=== PATIENT | male | born 1975 ===

== ENCOUNTER 2020-06-03 12:35 | Outpatient (CLI) | payer OTHER ==
--- NOTE | 2020-06-03 14:32 | MRI Report ---
PROCEDURE: Knee LT W/O INDICATIONS: SPRAIN IN LT KNEE TECHNIQUE: Noncontrast sagittal PD fast spin echo and T2 fast spin echo with fat saturation, sagittal 3-D gradie nt sequence with fat saturation; coronal T1 spin echo and PD fast spin echo with fat saturation, and axial PD fast spin echo with fat saturation through the knee. COMPARISON: None. FINDINGS: Image quality: Excellent. Menisci: There is peripheral displacement of medial meniscus bowing medial collateral ligament. Compl ex oblique tear involving posterior horn of medial meniscus is seen extending to both superior and in ferior articulating surfaces. Complex tear involving anterior horn, body and posterior horn of latera l meniscus is also seen extending to both superior and inferior articulating surfaces. Peripheral dis placement of lateral meniscus is also seen bowing lateral collateral ligament. The meniscal root liga ments appear intact. Cruciate ligaments: Patient is status post anterior cruciate ligament repair with postsurgical change s. ACL graft is grossly intact. Posterior cruciate ligament is intact. Medial structures: The medial collateral ligament appears intact. The posterior oblique ligament, s emimembranosus tendon insertions, and oblique popliteal ligament, and meniscocapsular junction appear intact. Visualized portions of the pes anserinus tendons appear normal. No abnormal bursal fluid. Lateral structures: Low-grade LCL sprain is seen. The popliteus tendon appears normal; the popliteofi bular ligament appears intact. The posterosuperior and anteroinferior popliteomeniscal fascicles cici ear intact. The arcuate and fabellofibular ligaments appear intact, around the lateral inferior roseline culate artery. Iliotibial band appears normal. Anterior structures: The quadriceps and patellar tendons appear intact. Patellar alignment is kacey l. No femoral trochlear dysplasia or ventral trochlear prominence. No edema in the infrapatellar fa t pad. Bones and cartilage: There is no fracture or dislocation. 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 Joint space: There is small to moderate amount of joint fluid. No Hicks?s cyst. Normal appearing s ynovial plicae are incidentally noted. IMPRESSION: 1. Complex oblique tear involving posterior horn of medial meniscus extending to both superior and in ferior articular surfaces. Peripheral displacement of medial and lateral menisci. Complex tear involv ing anterior lateral meniscus extending to both superior and inferior articulating surfaces. 2. Low-grade LCL sprain. Prior ACL reconstruction with postsurgical changes. ACL graft is intact. 3. Mild tricompartmental osteoarthritis more prominent in lateral femoral tibial compartment. 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 Small to moderate sebastian nt effusion, no gross loose body. Reviewed by: Rohit Machuca MD on 06/03/2020 1:30 PM AKST Approved by: Rohit Machuca MD on 06/03/2020 1:30 PM AKST Station ID: [id number]
== END 2020-06-03 12:36 | disposition home or self-care (01) ==
LOC: DI 12:35
PROVIDERS: ATTEND Family Medicine
DX: S83.242A Other tear of medial meniscus, current injury, left knee, initial encounter (principal); S83.282A Other tear of lateral meniscus, current injury, left knee, initial encounter; S83.422A Sprain of lateral collateral ligament of left knee, initial encounter; M17.12 Unilateral primary osteoarthritis, left knee; M94.262 Chondromalacia, left knee